=== PATIENT | female | born 2000 | race Caucasian/White ===

== ENCOUNTER 2020-11-06 09:24 | Emergency (ER) | payer OTHER, SELFPAY ==
[2020-11-06 09:36] VITALS: BP 128/83; PULSE 82; RESP 16; TEMP 37.2; O2SAT 100; BMI 23.9
--- NOTE | 2020-11-06 09:42 | ED_ITS ---
HPI - Female Genitourinary General Chief complaint: Vaginal Bleeding Stated complaint: spotting, bad cramping, just learned of Time Seen by Provider: 11/06/20 09:32 Source: patient Mode of arrival: Ambulatory Limitations: no limitations History of Present Illness HPI Narrative: Patient is a 20-year-old female who is currently about 6-8 weeks presenting with vaginal bleeding and spotting for the last 48 hours. She says initially was light and just when she wipes but now seems to be a bit heavier. She has been nauseated but no vomiting. Complaint: vaginal bleeding Onset (ago): day(s) (2) Related Data Allergies Allergy/AdvReac Type Severity Reaction Status Date / Time No Known Drug Allergies Allergy Verified 11/06/20 09:42 Review of Systems Review of Systems Narrative: GENERAL: Denies chills, fatigue, malaise, fever, sweats, travel HEENT: Denies sinus pain, ear pain, sore throat, difficulty swallowing, neck pain RESPIRATORY: Denies dyspnea, cough, wheezing, hemoptysis, sputum. CARDIOVASCULAR: Denies chest pain, palpitations, orthopnea, edema GASTROINTESTINAL: Denies nausea, vomiting, abdominal pain, diarrhea, constipation, melena. 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 MUSCULOSKELETAL: Denies weakness, joint pain, or bony pain SKIN: No rash, no erythema, no pruritus NEUROLOGIC: Denies weakness, dizziness, headache, numbness, change in speech, confusion PSYCHIATRIC: No concerning psychosocial issues. 12 point review of systems is negative except for those stated above and HPI Patient History alcohol intake frequency: 0-2 drinks per day Substance Use Type: does not use Exam Initial Vital Signs Initial Vital Signs: Vital Signs Temperature 98.9 F 11/06/20 09:36 Pulse Rate 82 11/06/20 09:36 Respiratory Rate 16 11/06/20 09:36 Blood Pressure 128/83 11/06/20 09:36 Pulse Oximetry 100 11/06/20 09:36 GENERAL: Well-appearing, well-nourished and in no acute distress. HEENT: Head atraumatic,EOMI, pupils reactive, face symmetric, moist mucous membranes CARDIOVASCULAR: Regular rate and rhythm without murmurs, rubs or gallops. RESPIRATORY: Breath sounds equal bilaterally, no wheezes rales or rhonchi. ABDOMEN: Soft, nontender. Normoactive bowel sounds all 4 quadrants. No guarding or rebound. PELVIC: External genitalia is normal, no vaginal bleeding, no vaginal discharge, no odor, cervical os is closed, minimal right side adnexal tenderness EXTREMITIES: Normal range of motion, no clubbing or edema. Neurovascularly intact NEUROLOGICAL: Alert and oriented x4.N SKIN: Warm, dry, no laceration, no petechiae, no rashes or lesions. Course Orders Ordered: ED Orders 11/06/20 09:35 ABO RH Type Stat Complete Blood Count AUTO DIFF Stat Comprehensive Metabolic Panel Stat HCG Quantitative /Beta subunit Stat 11/06/20 09:42 US pelvic complete Stat Vital Signs Vital signs: Vital Signs - 8 hr 11/06/20 10:57 Pulse Rate 80 Respiratory Rate 18 Blood Pressure 105/63 Pulse Oximetry 99 MDM - Female Genitourinary Lab Data Attestation: I reviewed the patient's lab results. Result diagrams: 11/06/20 09:35 11/06/20 09:35 Labs: Lab Results 11/06/20 11/06/20 11/06/20 Range/Units 09:35 09:35 09:35 WBC 7.0 (4.5-11.0) X10^3/uL RBC 4.22 (4.0-5.2) X10^6/uL Hgb 11.8 L (12.0-16.0) g/dL Hct 35.4 L (36-46) % MCV 83.7 (80-100) fL MCH 28.0 (26-34) PG MCHC 33.5 (30-36) % RDW 14.0 (11.6-14.8) % Plt Count 291 (150-400) X10^3/uL Neut % (Auto) 63.1 (50-75) % Lymph % (Auto) 27.0 (25-40) % [place] % (Auto) 8.5 (3-14) % Eos % (Auto) 0.7 L (2-4) % Baso % (Auto) 0.7 (0-2) % Neut # (Auto) 4400 (6202-4452) /uL Lymph # (Auto) 1900 (0695-2386) /uL [place] # (Auto) 600 (0-900) /uL Eos # (Auto) 0 (0-450) /uL Baso # (Auto) 100 (0-100) /uL Sodium 140 (137-145) mmol/L Potassium 4.1 (3.4-5.1) mmol/L Chloride 107 (98-107) mmol/L Carbon Dioxide 25 (22-32) mmol/L BUN 8 (7-17) mg/dL Creatinine 0.57 (0.52-1.04) mg/dL Estimated GFR > 60.0 (>60) mL/min BUN/Creatinine Ratio 14.0 (6-22) Glucose 77 (70-100) mg/dL Calcium 9.2 (8.4-10.2) mg/dL Total Bilirubin 0.3 (0.2-1.3) mg/dL AST 19 (14-36) IU/L ALT 11 (<35) IU/L Alkaline Phosphatase 58 (38-126) U/L Total Protein 7.2 (6.3-8.2) g/dL Albumin 4.2 (3.5-5.0) g/dL Globulin 3.0 (1.7-4.1) g/dL Albumin/Globulin Ratio 1.4 (1.0-2.8) HCG, Quant 133.5 mIU/mL Blood Type O Positive Point of Care Testing Test Results Positive Urine Dip Bedside Urine Glucose Negative Bedside Urine Bilirubin - Negative Bedside Urine Ketone - Negative Urine Specific [place] 1.015 Bedside Urine Occult Blood - Negative Bedside Urine pH 7.5 Bedside Urine Protein - Negative Bedside Urine Urobilinogen - Negative Bedside Urine Nitrite - Negative Bedside Urine Leukocytes - Negative Esterase Imaging Data US - OB: Radiologist's Impression: PROCEDURE: US PELVIC COMPLETE INDICATIONS: POSITIVE TEST; SPOTTING, CRAMPING TECHNIQUE: Real-time scanning was performed of the pelvic organs, with image documentation. Additional endovaginal scanning was necessary due to incomplete visualization of the adnexal and endometrial structures by transabdominal scanning. COMPARISON: None. FINDINGS: Uterus: Uterus is normal in size at 8.4 x 4.3 x 6.5 cm. The endometrium measures 18.7 mm in combined thickness. There is an appearance of decreased heterogeneous echogenicity within the canal, ill-defined. No classic appearing gestational sac is identif ied. Ovaries: Right ovary measures 3.4 x 1.9 x 2.5 cm. Complex focus of echogenicity is identified measuring 2.1 x 1.7 x 1.9 cm. Left ovary measures 3.2 x 1.6 x 2.6 cm. Other: No pathologic free abdominal or pelvic fluid. IMPRESSION: 1. No definitively identified intrauterine gestational sac. Recommend short interval imaging follow-up with correlation to beta HCG levels. 2. Complex focus of echogenicity within the right ovary suspected to represent corpus luteal cyst. However, recommend imaging follow-up with correlation to beta HCG levels as positive test without definitively identified intrauterine cannot exclude ectopic. Dictated by: Susan Sun M.D. on 11/06/2020 at 10:50 MDM Narrative Medical decision making narrative: Unfortunately patient's hCG is 133 and pelvic ultrasound shows no intrauterine gestational sac. I have informed patient that she is likely miscarrying. HCGs seems to be quite low based on her last menstrual period which was the middle of September. sHe is quite upset by this news which is understandable. Her is noted fluid for the next 6 months her friend with her is quite concerned about her. She has history of depression and anxiety and has not been on medication due to the . At this time patient denies any suicidal or homicidal ideations. She says she just wants to go home and sleep. The friend states that she will stay with her. Discharge Plan Departure Patient Disposition: Home Clinical Impression: Miscarriage Instructions: Dealing With Miscarriage, DI for Miscarriage Activity Restrictions/Additional Instructions: *You have been diagnosed with miscarriage *What to do: I a.m. so sorry to say I believe that you are miscarrying. Her ultrasound does not show anything in the uterus and your hCG is quite low. I do recommend that you have your blood level checked again on November 08. Expect to have more bleeding cramping and blood clots. *Continue to take medications as directed Tylenol or ibuprofen if needed for pain *Follow up with your primary care provider in 2-3 days *Return to ER if you should have increasing bleeding, more than 2 super pads an hour, dizziness, lightheadedness, increasing pain or any new, worsening or concerning symptoms Referrals: David Verma MD [Physician] - Stand Alone Forms: Work Release Note
[2020-11-06 09:43] LABS: Add Manual Diff / Slide Review NO; Basophils Absolute Auto 100 /uL (0-100); Basophils Percent Auto 0.7 % (0-2); Eosinophils Absolute Auto 0 /uL (0-450); Eosinophils Percent Auto 0.7 % (2-4); Hematocrit 35.4 % (36-46); Hemoglobin 11.8 g/dL (12.0-16.0); Lymphocytes Absolute Auto 1900 /uL (1100-4500); Mean Corpuscular HGB Conc 33.5 % (30-36); Mean Corpuscular Volume 83.7 fL (80-100); Monocytes Absolute Auto 600 /uL (0-900); Monocytes Percent Auto 8.5 % (3-14); Neutrophils Absolute Auto 4400 /uL (1500-7000); Neutrophils Percent Auto 63.1 % (50-75); Platelet Count 291 X10^3/uL (150-400); Red Blood Cell Count 4.22 X10^6/uL (4.0-5.2)
[2020-11-06 09:56] LABS: Alanine Aminotransferase 11 IU/L (<35); Albumin 4.2 g/dL (3.5-5.0); Albumin Globulin Ratio 1.4 (1.0-2.8); Alkaline Phosphatase 58 U/L (38-126); Aspartate Aminotransferase 19 IU/L (14-36); Bilirubin Total 0.3 mg/dL (0.2-1.3); Blood Urea Nitrogen 8 mg/dL (7-17); Calcium 9.2 mg/dL (8.4-10.2); Carbon Dioxide 25 mmol/L (22-32); Chloride 107 mmol/L (98-107); Estimated Glomerular Filt Rate > 60.0 mL/min (>60); Glucose 77 mg/dL (70-100); HEMOLYSIS < 15 (0-50); Potassium 4.1 mmol/L (3.4-5.1); Sodium 140 mmol/L (137-145); Total Protein 7.2 g/dL (6.3-8.2)
[2020-11-06 10:13] LABS: HCG Quantitative /Beta subunit 133.5 mIU/mL
[2020-11-06 10:57] VITALS: BP 105/63; PULSE 80; RESP 18; O2SAT 99
== END 2020-11-06 11:50 | disposition home or self-care (01) ==
PROVIDERS: Emergency Provider Emergency Medicine
DX: O03.9 Complete or unspecified spontaneous abortion without complication (principal)
CPT/HCPCS: 36415; 76830; 76856; 80053; 81003; 81025; 84702; 85025; 86900; 86901; 99284

== ENCOUNTER 2020-11-11 12:25 | Emergency (ER) | payer OTHER, SELFPAY ==
[2020-11-11 12:37] VITALS: BP 114/65; PULSE 68; RESP 16; TEMP 37.2; O2SAT 100
--- NOTE | 2020-11-11 12:42 | DI.US.S_ITS ---
PROCEDURE: US OB <= 14 WEEKS FETUS INDICATIONS: PAIN; DATES OUTSIDE/PRIOR DATING DATA: Last menstrual period (LMP): 10/03/2020. LMP-based estimated date of delivery (ROBLES): 07/10/2021. First dating scan (date and location): 11/11/2020 at . Estimated date of delivery (ROBLES) from first dating scan: Not available. TECHNIQUE: Real-time scanning was performed of the fetus and maternal pelvic organs, with image documentation. Endovaginal scanning was also performed to better visualize the fetus and maternal ovaries. COMPARISON: [facility], , PELVIC COMPLETE, 11/06/2020, 9:56. FINDINGS: There is a possible gestational sac measuring 5 weeks 0 day. No pole at this time. There is a small fluid collection in the endometrial cavity superior to the presumed gestational sac. Measurement variability in dating: +/- 4 weeks by LMP, +/- 7 days by mean sac diameter (use before 6 weeks gestation if crown-rump length not able to be measured), +/- 5 days by crown-rump length (up to 8 weeks 6 days gestation), +/- 7 days by crown-rump length (up to 13 weeks 6 days gestation). Maternal organs: There is a complex mass in the right ovary measuring 2.9 x 1.3 by 2.3 cm, most likely a corpus luteal cyst, but ectopic cannot be excluded. Left ovary is normal. IMPRESSION: 1. A possible intrauterine gestational sac with an estimated gestational age of 5 weeks 0 day based on MGSD. No pole is visualized at this time. The finding could be secondary to early intrauterine or a blighted ovum. Recommend clinical correlation and correlation with quantitative serum beta HCG. 2. A small amount of endometrial fluid in the endometrial cavity superior to the presumed gestational sac. 3. A complex mass in the right ovary, most likely a corpus luteal cyst. Ectopic cannot be definitively excluded. Recommend continued clinical follow-up and imaging follow-up as needed. The result was discussed with Dr. Pathak in ER. Dictated by: Nara Patino M.D. on 11/11/2020 at 14:36 Approved by: Nara Patino M.D. on 11/11/2020 at 14:52
[2020-11-11 13:35] LABS: HCG Quantitative /Beta subunit 914.9 mIU/mL
--- NOTE | 2020-11-11 15:01 | ED_ITS ---
HPI - General Chief complaint: OB/Uterine Contractions Stated complaint: possible etopic Time Seen by Provider: 11/11/20 13:38 Source: patient Mode of arrival: Ambulatory History of Present Illness HPI Narrative: Patient is a 20-year-old female who presents for rule out ectopic. I actually saw and evaluated her last week she was thought to be having a miscarriage hCG was quite low at 133 and ultrasound did not show any intrauterine gestation. However she followed up she was supposed to in she had doubled her hCG 48 hours later. She had an [place] [employer] [place] there was concern for ectopic because of dilated fallopian tube. She is only having some mild lower abdominal cramping and vaginal bleeding and spotting has stopped. She denies any nausea or vomiting. She overall is in much better spirits today than when I previously saw her. Related Data Allergies Allergy/AdvReac Type Severity Reaction Status Date / Time No Known Drug Allergies Allergy Verified 11/06/20 09:42 Review of Systems Review of Systems Narrative: GENERAL: Denies chills, fatigue, malaise, fever, sweats, travel HEENT: Denies sinus pain, ear pain, sore throat, difficulty swallowing, neck pain RESPIRATORY: Denies dyspnea, cough, wheezing, hemoptysis, sputum. CARDIOVASCULAR: Denies chest pain, palpitations, orthopnea, edema GASTROINTESTINAL: Denies nausea, vomiting, abdominal pain, diarrhea, constipation, melena. : Denies dysuria, frequency, incontinence, hematuria, urinary retention, flank pain. 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 12 point review of systems is negative except for those stated above and HPI Exam Initial Vital Signs Initial Vital Signs: Vital Signs Temperature 99.0 F 11/11/20 12:37 Pulse Rate 68 11/11/20 12:37 Respiratory Rate 16 11/11/20 12:37 Blood Pressure 114/65 11/11/20 12:37 Pulse Oximetry 100 11/11/20 12:37 GENERAL: Well-appearing, well-nourished and in no acute distress. HEENT: Head atraumatic,EOMI, pupils reactive, face symmetric, moist mucous membranes CARDIOVASCULAR: Regular rate and rhythm without murmurs, rubs or gallops. RESPIRATORY: Breath sounds equal bilaterally, no wheezes rales or rhonchi. ABDOMEN: Soft, mild lower ab pain, no guarding or rebound no upper quadrant pain EXTREMITIES: Normal range of motion, no clubbing or edema. Neurovascularly intact NEUROLOGICAL: Alert and oriented x4.Normal gait and speech. SKIN: Warm, dry, no laceration, no petechiae, no rashes or lesions. Course Orders Ordered: ED Orders 11/11/20 12:42 US OB <= 14 weeks fetus Stat 11/11/20 12:58 Beta HCG, Quant [HCG Quantitative /Beta subunit] Stat Consultations Consultation #1: Betsy Layne Time: 15:05 Vital Signs Vital signs: Vital Signs - 8 hr 11/11/20 12:37 11/11/20 15:21 Temperature 99.0 F Pulse Rate 68 64 Respiratory Rate 16 12 Blood Pressure 114/65 112/62 Pulse Oximetry 100 98 MDM - OB/Uterine Contractions Lab Data Labs: Lab Results 11/11/20 Range/Units 12:58 HCG, Quant 914.9 mIU/mL Imaging Data US - OB: Radiologist's Impression: PROCEDURE: US OB <= 14 WEEKS FETUS INDICATIONS: PAIN; DATES OUTSIDE/PRIOR DATING DATA: Last menstrual period (LMP): 10/03/2020. LMP-based estimated date of delivery (ROBLES): 07/10/2021. First dating scan (date and location): 11/11/2020 at . Estimated date of delivery (ROBLES) from first dating scan: Not available. TECHNIQUE: Real-time scanning was performed of the fetus and maternal pelvic organs, with image documentation. Endovaginal scanning was also performed to better visualize the fetus and maternal ovaries. COMPARISON: [facility], , US PELVIC COMPLETE, 11/06/2020, 9:56. FINDINGS: There is a possible gestational sac measuring 5 weeks 0 day. No pole at this time. There is a small fluid collection in the endometrial cavity superior to the presumed gestational sac. Measurement variability in dating: +/- 4 weeks by LMP, +/- 7 days by mean sac diameter (use before 6 weeks gestation if crown-rump length not able to be measured), +/- 5 days by crown-rump length (up to 8 weeks 6 days gestation), +/- 7 days by crown-rump length (up to 13 weeks 6 days gestation). Maternal organs: There is a complex mass in the right ovary measuring 2.9 x 1.3 by 2.3 cm, most likely a corpus luteal cyst, but ectopic cannot be excluded. Left ovary is normal. IMPRESSION: 1. A possible intrauterine gestational sac with an estimated gestational age of 5 weeks 0 day based on MGSD. No pole is visualized at this time. The finding could be secondary to early intrauterine or a blighted ovum. Recommend cli nical correlation and correlation with quantitative serum beta HCG. 2. A small amount of endometrial fluid in the endometrial cavity superior to the presumed gestational sac. 3. A complex mass in the right ovary, most likely a corpus luteal cyst. Ectopic cannot be definitively excluded. Recommend continued clinical follow- up and imaging follow-up as needed. The result was discussed with Dr. Pathak in ER. Dictated by: Nara Patino M.D. on 11/11/2020 at 14:36 MDM Narrative Medical decision making narrative: Patient's hCG is increasing pole is noted in uterus by ultrasound. She has mild lower abdominal pain and not exquisite pain. It yet it ultrasound does show complex ovarian cyst which was seen previously no significant change today. However Radiology cannot completely exclude ectopic. It is possible she has no heterotopic however unlikely. 3pm-Dr. fellow OBGYN has actually already reviewed the ultrasound and thinks there is no or knee are normal evidence of ectopic. She sees a yolk sac in the uterus. At this time she recommends trending in the HCG. She is happy to follow up with patient in the clinic and have a repeat ultrasound. Discharge Plan Departure Patient Disposition: Home Clinical Impression: Qualifiers: Weeks of gestation: less than 8 weeks Qualified Code(s): Z3A.01 - Less than 8 weeks gestation of Instructions: DI for -- Discomforts and Remedies Activity Restrictions/Additional Instructions: *You have been diagnosed with 5 weeks *What to do: at this time recommended that you have repeat hCG in 48 hours. I have spoken with Dr. wade our Ob fluids happy to see you in the office either Wednesday or Wednesday for follow-up ultrasound. She reviewed her ultrasound today and everything is overall reassuring *Continue to take medications as directed Tylenol 1000 mg every 6 hoursif needed for [id number] pain *Follow up with your primary care provider in 2-3 days *Return to ER if you should have increasing pain, vaginal bleeding, persistant vomiting [or] any new, worsening or concerning symptoms Referrals: [employer] [facility] [Provider Group] Betsy Layne,MD [facility] [Physician] - Stand Alone Forms: Work Release Note
[2020-11-11 15:21] VITALS: BP 112/62; PULSE 64; RESP 12; O2SAT 98
== END 2020-11-11 15:21 | disposition home or self-care (01) ==
PROVIDERS: Emergency Provider Emergency Medicine
DX: O26.891 Other specified pregnancy related conditions, first trimester (principal); R10.30 Lower abdominal pain, unspecified; Z3A.01 Less than 8 weeks gestation of pregnancy
CPT/HCPCS: 36415; 76801; 76817; 84702; 99283; 99284

== ENCOUNTER 2020-11-25 15:16 | Emergency (ER) | payer OTHER, SELFPAY ==
[2020-11-25 15:38] VITALS: BP 93/55; PULSE 63; RESP 20; TEMP 36.6; O2SAT 99
--- NOTE | 2020-11-25 15:49 | DI.US.S_ITS ---
PROCEDURE: US OB <= 14 WEEKS FETUS INDICATIONS: PAIN OUTSIDE/PRIOR DATING DATA: Last menstrual period (LMP): 10/03/2020 . LMP-based estimated date of delivery (ROBLES): 07/10/2021 . First dating scan (date and location): 11/11/2020 . Estimated date of delivery (ROBLES) from first dating scan: 07/13/2021 . TECHNIQUE: Real-time scanning was performed of the fetuses and maternal pelvic organs, with image documentation. Endovaginal scanning: Performed for better visualization of the fetuses and maternal adnexal structures. COMPARISON: None. FINDINGS: General: An single intrauterine is present with a crown-rump length of 1 centimeter (corresponding to 7 week 1 day gestational age). Yolk sac is identified. The heart rate measured at 124 beats per minute. Hypoechoic focus adjacent to the gestational sac measuring 3.2 x 2.9 x 0.5 centimeters is suspicious for small perigestational hemorrhage. Maternal organs: Ovaries normal. Corpus luteum cyst in the right ovary measuring 2.1 centimeters. . IMPRESSION: Single live intrauterine gestation with average ultrasound age of 7 week 1 day. Dictated by: David Burrell M.D. on 11/25/2020 at 16:40 Approved by: David Burrell M.D. on 11/25/2020 at 16:42
[2020-11-25 17:43] LABS: Add Manual Diff / Slide Review NO; Basophils Absolute Auto 0 /uL (0-100); Basophils Percent Auto 0.4 % (0-2); Eosinophils Absolute Auto 100 /uL (0-450); Eosinophils Percent Auto 0.7 % (2-4); Hematocrit 35.2 % (36-46); Hemoglobin 11.7 g/dL (12.0-16.0); Lymphocytes Absolute Auto 2600 /uL (1100-4500); Lymphocytes Percent Auto 28.8 % (25-40); Mean Corpuscular HGB Conc 33.3 % (30-36); Mean Corpuscular Hemoglobin 27.9 PG (26-34); Mean Corpuscular Volume 83.6 fL (80-100); Monocytes Absolute Auto 700 /uL (0-900); Monocytes Percent Auto 8.3 % (3-14); Neutrophils Absolute Auto 5500 /uL (1500-7000); Neutrophils Percent Auto 61.8 % (50-75); Platelet Count 314 X10^3/uL (150-400); Red Blood Cell Count 4.22 X10^6/uL (4.0-5.2); Red Cell Distribution Width 13.9 % (11.6-14.8)
[2020-11-25 18:01] LABS: Alanine Aminotransferase 12 IU/L (<35); Albumin 4.5 g/dL (3.5-5.0); Albumin Globulin Ratio 1.5 (1.0-2.8); Alkaline Phosphatase 55 U/L (38-126); Aspartate Aminotransferase 24 IU/L (14-36); BUN Creatinine Ratio 17.3 (6-22); Bilirubin Total 0.2 mg/dL (0.2-1.3); Blood Urea Nitrogen 9 mg/dL (7-17); Calcium 9.7 mg/dL (8.4-10.2); Carbon Dioxide 26 mmol/L (22-32); Chloride 104 mmol/L (98-107); Estimated Glomerular Filt Rate > 60.0 mL/min (>60); Glucose 95 mg/dL (70-100); HEMOLYSIS < 15 (0-50); Potassium 4.2 mmol/L (3.4-5.1); Sodium 138 mmol/L (137-145); Total Protein 7.5 g/dL (6.3-8.2)
[2020-11-25 18:42] LABS: HCG Quantitative /Beta subunit 35448 mIU/mL
--- NOTE | 2020-11-25 19:30 | ED_ITS ---
HPI - Female Genitourinary General Chief complaint: OB/Uterine Contractions Stated complaint: 7 WKS CYST Time Seen by Provider: 11/25/20 17:44 Source: patient Mode of arrival: Ambulatory History of Present Illness HPI Narrative: 20-year-old female nonsmoker at 7 weeks presents with a chief complaint of some lower abdominal cramping over the past day or so. She is not dizzy nor weak or lightheaded, she denies dysuria, frequency or urgency, she denies diarrhea or constipation. She denies any fever or chills. She denies any bleeding or spotting nor leakage of fluids. She is otherwise well and free of complaint. She denies any obvious provocation, palliation or radiation of her discomfort. Related Data Home Medications Medication Instructions Recorded Confirmed prazosin 5 mg capsule 5 mg PO BEDTIME 11/15/20 11/15/20 Allergies Allergy/AdvReac Type Severity Reaction Status Date / Time No Known Drug Allergies Allergy Verified 11/15/20 12:20 Review of Systems Review of Systems Narrative: GENERAL: Denies chills, fatigue, malaise, fever, sweats. HEENT: Denies sinus pain, ear pain, sore throat, difficulty swallowing, dizziness. RESPIRATORY: Denies dyspnea, cough, wheezing, hemoptysis, sputum. CARDIOVASCULAR: Denies chest pain, palpitations, orthopnea, edema, GASTROINTESTINAL: Denies nausea, vomiting, abdominal pain, diarrhea, constipation, melena. : See HPI MUSCULOSKELETAL: denies weakness, joint pain, or bony pain SKIN: Denies rash, skin lesions, or other NEUROLOGIC: Denies weakness, headache, numbness, change in speech, confusion, seizures, incoordination. PSYCHIATRIC: No concerning psychosocial issues. 12 point review of systems is negative except for those stated above Patient History alcohol intake frequency: 0-2 drinks per day Substance Use Type: does not use Exam Narrative Exam Narrative: GENERAL: [20] year old patient appears stated age. Well- developed patient, in mild distress. HEAD: Atraumatic. Normocephalic. EYES: Pupils equal round and reactive. Extraocular motions intact. No scleral icterus. No injection or drainage. ENT: Nose without bleeding, purulent drainage. Throat without erythema, tonsillar hypertrophy or exudate. Airway patent. NECK: Trachea midline. Non tender CARDIOVASCULAR: Regular rate and rhythm without murmurs, gallops, or rubs. RESPIRATORY: Clear to auscultation. Breath sounds equal bilaterally. No wheezes, rales, or rhonchi. GASTROINTESTINAL: Abdomen soft, non-tender, nondistended. EXTREMITIES: No edema or joint tenderness. BACK: Nontender without deformity or crepitance. No flank tenderness. NEURO: AOx3. SKIN: No rash or erythema of visible areas Initial Vital Signs Initial Vital Signs: Vital Signs Temperature 97.9 F 11/25/20 15:38 Pulse Rate 63 11/25/20 15:38 Respiratory Rate 20 11/25/20 15:38 Blood Pressure 93/55 L 11/25/20 15:38 Pulse Oximetry 99 11/25/20 15:38 Course Orders Ordered: ED Orders 11/25/20 17:30 ABO RH Type Stat Complete Blood Count AUTO DIFF Stat Comprehensive Metabolic Panel Stat HCG Quantitative /Beta subunit Stat Vital Signs Vital signs: Vital Signs - 8 hr 11/25/20 15:38 Temperature 97.9 F Pulse Rate 63 Respiratory Rate 20 Blood Pressure 93/55 L Pulse Oximetry 99 MDM - Female Genitourinary Lab Data Result diagrams: 11/25/20 17:30 11/25/20 17:30 Labs: Lab Results 11/25/20 11/25/20 11/25/20 Range/Units 17:30 17:30 17:30 WBC 9.0 (4.5-11.0) X10^3/uL RBC 4.22 (4.0-5.2) X10^6/uL Hgb 11.7 L (12.0-16.0) g/dL Hct 35.2 L (36-46) % MCV 83.6 (80-100) fL MCH 27.9 (26-34) PG MCHC 33.3 (30-36) % RDW 13.9 (11.6-14.8) % Plt Count 314 (150-400) X10^3/uL Neut % (Auto) 61.8 (50-75) % Lymph % (Auto) 28.8 (25-40) % [place] % (Auto) 8.3 (3-14) % Eos % (Auto) 0.7 L (2-4) % Baso % (Auto) 0.4 (0-2) % Neut # (Auto) 5500 (2737-6759) /uL Lymph # (Auto) 2600 (3241-6173) /uL [place] # (Auto) 700 (0-900) /uL Eos # (Auto) 100 (0-450) /uL Baso # (Auto) 0 (0-100) /uL Sodium 138 (137-145) mmol/L Potassium 4.2 (3.4-5.1) mmol/L Chloride 104 (98-107) mmol/L Carbon Dioxide 26 (22-32) mmol/L BUN 9 (7-17) mg/dL Creatinine 0.52 (0.52-1.04) mg/dL Estimated GFR > 60.0 (>60) mL/min BUN/Creatinine Ratio 17.3 (6-22) Glucose 95 (70-100) mg/dL Calcium 9.7 (8.4-10.2) mg/dL Total Bilirubin 0.2 (0.2-1.3) mg/dL AST 24 (14-36) IU/L ALT 12 (<35) IU/L Alkaline Phosphatase 55 (38-126) U/L Total Protein 7.5 (6.3-8.2) g/dL Albumin 4.5 (3.5-5.0) g/dL Globulin 3.0 (1.7-4.1) g/dL Albumin/Globulin Ratio 1.5 (1.0-2.8) HCG, Quant 89034 mIU/mL Blood Type O Positive Imaging Data US - OB: Radiologist's Impression: Shiloh Sneed A 20 F 2000 [place], [place] [address]Ultrasound ReportSigned Patient: Shiloh Sneed AMR#: [id number]: 2000Acct:[id number]/Sex: 20 / FDate of Service: 11/25/20Loc: EDAccession Number: [id number] Procedure: US OB <= 14 weeks fetus Ordering Provider: Nany Pathak D.O. PROCEDURE: US OB <= 14 WEEKS FETUS INDICATIONS: PAIN OUTSIDE/PRIOR DATING DATA: Last menstrual period (LMP): 10/03/2020 . LMP-based estimated date of delivery (ROBLES): 07/10/2021 . First dating scan (date and location): 11/11/2020 . Estimated date of delivery (ROBLES) from first dating scan: 07/13/2021 . TECHNIQUE: Real-time scanning was performed of the fetuses and maternal pelvic organs, with image documentation. Endovaginal scanning: Performed for better visualization of the fetuses and maternal adnexal structures. COMPARISON: None. FINDINGS: General: An single intrauterine is present with a crown-rump length of 1 centimeter (corresponding to 7 week 1 day gestational age). Yolk sac is identified. The heart rate measured at 124 beats per minute. Hypoechoic focus adjacent to the gestational sac measuring 3.2 x 2.9 x 0.5 centimeters is suspicious for small perigestational hemorrhage. Maternal organs: Ovaries normal. Corpus luteum cyst in the right ovary measuring 2.1 centimeters. . IMPRESSION: Single live intrauterine gestation with average ultrasound age of 7 week 1 day. Dictated by: David Burrell M.D. on 11/25/2020 at 16:40 Approved by: David Burrell M.D. on 11/25/2020 at 16:42 MDM Narrative Medical decision making narrative: Patient with minimal symptoms, very reassur ing history and physical exam. Ultrasound is unremarkable. Return precautions given and questions answered to her apparent satisfaction Discharge Plan Departure Patient Disposition: Home Clinical Impression: Pelvic pain during Instructions: DI for -- Discomforts and Remedies Activity Restrictions/Additional Instructions: *You have been diagnosed with [pelvic pain during with reassuring physical exam and ultrasound] *What to do: *Please continue to take your regular medications as directed. [ ] New medication prescriptions sent to your pharmacy: [ ] [ ] New medication written as a paper prescription [x ] No new medications given *Please follow up with your primary care provider in 2-3 days, call for an appointment. Let them know you were seen in the Emergency Department and that we ask that you be seen in follow up. We will electronically transmit a record of today's note if your PCP is in our system *If you do not have a primary care provider please contact the [facility] Resource line at [phone]. They will ask some questions about your medical history and help get you set up with a doctor in the community. *Return to Emergency Department if you should have any new, worsening or concerning symptoms, such as [fever greater than 101 F, shaking chills, worsening pain, persistent vomiting or other bothersome symptoms] Prescriptions: No Action prazosin 5 mg capsule 5 mg PO BEDTIME RF: 0 Referrals: [place],MD [place] [Physician] - Emeka Pacheco DO [Primary Care Provider] - David Verma MD [Physician] -
== END 2020-11-25 19:58 | disposition home or self-care (01) ==
PROVIDERS: Emergency Medicine; Emergency Provider Emergency Medicine; PCP Family Medicine
DX: O26.91 Pregnancy related conditions, unspecified, first trimester (principal); R10.2 Pelvic and perineal pain; Z3A.01 Less than 8 weeks gestation of pregnancy
CPT/HCPCS: 36415; 76801; 76817; 80053; 84702; 85025; 86900; 86901; 99283; 99284

== ENCOUNTER → 2020-12-12 09:36 | Outpatient (CLI) | payer OTHER, SELFPAY ==
[2020-12-12 13:47] LABS: Urine N gonorrhoeae NOT DETECTED
[2020-12-12 13:53] LABS: Urine Chlamydia NOT DETECTED
== END ==
PROVIDERS: PCP Family Medicine; Visit Provider Obstetrics & Gynecology
DX: Z34.81 Encounter for supervision of other normal pregnancy, first trimester (principal); Z3A.10 10 weeks gestation of pregnancy
CPT/HCPCS: 87491; 87591

== ENCOUNTER → 2020-12-16 15:38 | Outpatient (CLI) | payer OTHER, SELFPAY | PROVIDERS: PCP Family Medicine; Referring Provider Obstetrics & Gynecology; Visit Provider Obstetrics & Gynecology | DX: Z34.91 Encounter for supervision of normal pregnancy, unspecified, first trimester (principal); Z36.0 Encounter for antenatal screening for chromosomal anomalies | CPT/HCPCS: 36415 ==

== ENCOUNTER → 2021-02-07 14:36 | Outpatient (CLI) | payer OTHER, SELFPAY ==
[2021-02-07 15:25] LABS: Add Manual Diff / Slide Review NO; Basophils Absolute Auto 0 /uL (0-100); Basophils Percent Auto 0.3 % (0-2); Eosinophils Absolute Auto 100 /uL (0-450); Eosinophils Percent Auto 0.9 % (2-4); Hematocrit 36.1 % (36-46); Hemoglobin 11.9 g/dL (12.0-16.0); Lymphocytes Absolute Auto 2200 /uL (1100-4500); Lymphocytes Percent Auto 19.1 % (25-40); Mean Corpuscular HGB Conc 32.9 % (30-36); Mean Corpuscular Hemoglobin 28.2 PG (26-34); Mean Corpuscular Volume 85.6 fL (80-100); Monocytes Absolute Auto 1000 /uL (0-900); Monocytes Percent Auto 8.6 % (3-14); Neutrophils Absolute Auto 8100 /uL (1500-7000); Neutrophils Percent Auto 71.1 % (50-75); Platelet Count 289 X10^3/uL (150-400); Red Blood Cell Count 4.22 X10^6/uL (4.0-5.2); Red Cell Distribution Width 15.6 % (11.6-14.8); White Blood Cell Count 11.4 X10^3/uL (4.5-11.0)
[2021-02-07 15:56] LABS: Bilirubin Urine UA NEGATIVE (NEGATIVE); Color Urine UA YELLOW; Glucose Urine UA NEGATIVE (Negative); Ketones Urine UA NEGATIVE (NEGATIVE); Leukocyte Esterase Urine UA TRACE (NEGATIVE); Nitrite Urine UA NEGATIVE (Negative); Occult Blood Urine UA 2+ (Negative); Protein Urine UA NEGATIVE (Negative); Urobilinogen Urine UA 0.2 E.U./dL (0.2)
[2021-02-07 16:07] LABS: pH Urine UA 7.5 (4.5-8.0)
[2021-02-07 16:08] LABS: Appearance Urine UA Slightly Cloudy
[2021-02-07 16:11] LABS: Bacteria Urine Occasional (0-1); RBC Urine 0-1/HPF (0-5/HPF); Squamous Epithelial Cell Urine 1-5 /HPF (0-5/HPF); WBC Urine 1-5/HPF (0-5/HPF)
[2021-02-08 05:53] LABS: RPR Screen Non Reactive (Non Reactive)
[2021-02-08 08:15] LABS: Varicella IgG Antibody 438 index (Immune >165)
[2021-02-10 16:24] LABS: Hepatitis B Surface Antigen NEGATIVE s/c (NEGATIVE); Rubella Antibody IgG 26.6 IU/mL (>15)
[2021-02-10 16:42] LABS: HIV 1 & 2 Ab/Ag 4th Gen Combo NEGATIVE (NEGATIVE); Hep C Virus Ab w/Reflex Quant NEGATIVE s/c (NEGATIVE)
== END ==
PROVIDERS: PCP Family Medicine; Referring Provider Obstetrics & Gynecology; Visit Provider Obstetrics & Gynecology
DX: Z34.81 Encounter for supervision of other normal pregnancy, first trimester (principal)
CPT/HCPCS: 36415; 80055; 81003; 81015; 86787; 86803; 86850; 86900; 86901; 87086; 87389

== ENCOUNTER → 2021-02-21 12:43 | Outpatient (CLI) | payer OTHER, SELFPAY ==
--- NOTE | 2021-02-21 12:45 | DI.US.S_ITS ---
PROCEDURE: US OB >= 14 WEEKS FETUS INDICATIONS: ANATOMY OUTSIDE/PRIOR DATING DATA: Last menstrual period (LMP): 10/03/2020 . LMP-based estimated date of delivery (ROBLES): 07/10/2021 . First dating scan (date and location): 11/11/2020 . Estimated date of delivery (ROBLES) from first dating scan: 07/13/2021 . TECHNIQUE: Real-time scanning was performed of the fetus, with image documentation and biometric measurements. Endovaginal scanning: Non COMPARISON: None. FINDINGS: General: A single living intrauterine gestation is present. Presentation: Vertex. Placenta: Placental position is posterior , without previa. Amniotic fluid index: 13.9 cm, normal range is 5-24 cm. heart rate: 153 beats per minute. Maternal cervical canal: 3.6 cm long. Normal lower limit is 2.5 cm. biometrics: Biparietal diameter: 4.5 cm, 19 week 4 day Head circumference: 17.6 cm, 19 week 6 day Abdominal circumference: 15.3 cm, 20 week 4 day Femur length: 3.2 cm, 20 week 0 day Estimated gestational age from initial scan: 19 week 5 day Composite gestational age from present scan: 20 week 0 day Estimated weight and percentile: 340 g, 75th percentile Measurement variability for biometric dating: +/- 7 days from 14 weeks to 15 weeks 6 days gestation, +/- 10 days from 16 weeks to 21 weeks 6 days gestation, +/- 2 weeks from 22 weeks to 27 weeks 6 days gestation, +/- 3 weeks for 28 weeks gestation or later. weight reference: 4500 g or EFW >90/95% is considered macrosomia or large for gestational age. EFW <10% is small for gestational age. EFW 5% or less is considered intra-uterine growth restriction. Anatomic survey: Neuro: Ventricles are non-dilated at less than 10 mm. Cisterna magna is normal at 3-11 mm. Cerebellum is normal in size and morphology. Nuchal skin fold: Normal at less than 6 mm between 14-21 weeks gestational age. Face: Nose and lips, facial profile are normal. Spine: No evidence for spina bifida. Heart: 4-chambered heart is present, with normal ventricular outflow tracts. Diaphragm: Diaphragm is intact. Stomach: Left-sided stomach is present. Kidneys: No hydronephrosis. Normal is less than 5 mm in 2nd trimester, less than 7 mm in 3rd trimester. Cord: 3-vessel cord has orthotopic insertion. Bladder: Normal in size. Extremities: All 4 extremities identified. IMPRESSION: Single live intrauterine consistent with a 20 week 0 day gestation by current ultrasound Approved by: Moose Posadas M.D. on 02/21/2021 at 16:13
[2021-02-21 13:43] LABS: Appearance Urine UA SL CLOUDY; Bilirubin Urine UA NEGATIVE (NEGATIVE); Color Urine UA YELLOW; Glucose Urine UA NEGATIVE (Negative); Ketones Urine UA NEGATIVE (NEGATIVE); Leukocyte Esterase Urine UA 3+ (NEGATIVE); Nitrite Urine UA NEGATIVE (Negative); Occult Blood Urine UA NEGATIVE (Negative); Protein Urine UA NEGATIVE (Negative); Specific Gravity Urine UA 1.015 (1.000-1.035); Urobilinogen Urine UA 0.2 E.U./dL (0.2)
[2021-02-21 14:00] LABS: RBC Urine None Seen (0-5/HPF); Squamous Epithelial Cell Urine 5-10 /HPF (0-5/HPF); WBC Urine 5-10/HPF (0-5/HPF)
[2021-02-21 14:01] LABS: Amorphous Sediment Urine 2+; Bacteria Urine Many (>30); Culture Indicated Urine Cult Not Indicated
== END ==
PROVIDERS: PCP Family Medicine; Referring Provider Obstetrics & Gynecology; Visit Provider Obstetrics & Gynecology
DX: O23.42 Unspecified infection of urinary tract in pregnancy, second trimester; N39.0 Urinary tract infection, site not specified; Z36.89 Encounter for other specified antenatal screening; Z3A.20 20 weeks gestation of pregnancy
CPT/HCPCS: 76811; 81003; 81015

== ENCOUNTER → 2021-04-04 12:20 | Outpatient (CLI) | payer OTHER, SELFPAY ==
[2021-04-04 14:07] LABS: Hemoglobin 11.8 g/dL (12.0-16.0)
[2021-04-04 14:23] LABS: GTT (PREG) 1 Hour PP 50gm Dose 130 mg/dL (76-139)
== END ==
PROVIDERS: PCP Family Medicine; Referring Provider Obstetrics & Gynecology; Visit Provider Obstetrics & Gynecology
DX: Z34.82 Encounter for supervision of other normal pregnancy, second trimester (principal); Z3A.25 25 weeks gestation of pregnancy
CPT/HCPCS: 36415; 82950; 85014; 85018

== ENCOUNTER → 2021-06-04 08:55 | Outpatient (CLI) | payer OTHER, SELFPAY ==
[2021-06-04 10:25] LABS: COVID19 -Nasal RAPID Negative (Negative)
== END ==
PROVIDERS: PCP Family Medicine; Visit Provider Obstetrics & Gynecology
DX: Z20.822 Contact with and (suspected) exposure to COVID-19 (principal)
CPT/HCPCS: 87635

== ENCOUNTER → 2021-06-04 09:01 | Outpatient (CLI) | payer OTHER, SELFPAY ==
[2021-06-04 09:22] LABS: Add Manual Diff / Slide Review NO; Basophils Absolute Auto 0 /uL (0-100); Basophils Percent Auto 0.2 % (0-2); Eosinophils Absolute Auto 0 /uL (0-450); Eosinophils Percent Auto 0.2 % (2-4); Hematocrit 37.8 % (36-46); Hemoglobin 12.6 g/dL (12.0-16.0); Lymphocytes Absolute Auto 900 /uL (1100-4500); Lymphocytes Percent Auto 6.8 % (25-40); Mean Corpuscular HGB Conc 33.2 % (30-36); Mean Corpuscular Hemoglobin 28.4 PG (26-34); Mean Corpuscular Volume 85.6 fL (80-100); Monocytes Absolute Auto 1100 /uL (0-900); Monocytes Percent Auto 8.8 % (3-14); Neutrophils Absolute Auto 10700 /uL (1500-7000); Platelet Count 217 X10^3/uL (150-400); Red Blood Cell Count 4.42 X10^6/uL (4.0-5.2); Red Cell Distribution Width 12.7 % (11.6-14.8); White Blood Cell Count 12.7 X10^3/uL (4.5-11.0)
[2021-06-04 09:34] LABS: Alanine Aminotransferase 11 IU/L (<35); Albumin 3.8 g/dL (3.5-5.0); Albumin Globulin Ratio 1.2 (1.0-2.8); Alkaline Phosphatase 103 U/L (38-126); Aspartate Aminotransferase 22 IU/L (14-36); BUN Creatinine Ratio 12.8 (6-22); Bilirubin Total 0.5 mg/dL (0.2-1.3); Blood Urea Nitrogen 6 mg/dL (7-17); Carbon Dioxide 24 mmol/L (22-32); Chloride 105 mmol/L (98-107); Estimated Glomerular Filt Rate > 60.0 mL/min (>60); Globulin 3.2 g/dL (1.7-4.1); Glucose 82 mg/dL (70-100); HEMOLYSIS < 15 (0-50); Potassium 3.8 mmol/L (3.4-5.1); Sodium 135 mmol/L (137-145)
[2021-06-04 11:33] LABS: Amylase 79 U/L (30-110); Lipase 55 U/L (23-300)
== END ==
PROVIDERS: PCP Family Medicine; Referring Provider Obstetrics & Gynecology; Visit Provider Obstetrics & Gynecology
DX: Z34.83 Encounter for supervision of other normal pregnancy, third trimester (principal); R11.2 Nausea with vomiting, unspecified
CPT/HCPCS: 36415; 80053; 82150; 83690; 85025

== ENCOUNTER 2021-06-04 09:12 | Outpatient (CLI) | payer OTHER, SELFPAY ==
[2021-06-04] MEDS: LACTATED RINGERS 1,000 ML 1000 ML IV (10:17)
[2021-06-04 10:43] LABS: Appearance Urine UA CLEAR; Bilirubin Urine UA NEGATIVE (NEGATIVE); Color Urine UA YELLOW; Glucose Urine UA NEGATIVE (Negative); Ketones Urine UA NEGATIVE (NEGATIVE); Leukocyte Esterase Urine UA TRACE (NEGATIVE); Nitrite Urine UA NEGATIVE (Negative); Occult Blood Urine UA NEGATIVE (Negative); Protein Urine UA NEGATIVE (Negative); Urobilinogen Urine UA 0.2 E.U./dL (0.2)
[2021-06-04 10:51] LABS: Bacteria Urine Many (>30); Culture Indicated Urine Cult Not Indicated; RBC Urine 0-1/HPF (0-5/HPF); Squamous Epithelial Cell Urine 10-30 /HPF (0-5/HPF); WBC Urine 1-5/HPF (0-5/HPF)
[2021-06-04] MEDS: METOCLOPRAMIDE 10 MG/2 ML INJ IV (11:14)
--- NOTE | 2021-06-04 15:39 | PM.OBTRLD ---
Visit Information Visit Information Date of evaluation: 06/04/21 Primary OB Provider: Maximilian Lopez Comments/Additional reasons for admission: The patient has been experiencing leakage of fluid PV times the last 5 days which she has attributed to leakage of urine and has also started having nausea and vomiting. She is sent to the center for monitoring and evaluation [facility] Medical History Acne Anorexia Anxiety Bulimia (~05/2019) Finger fracture History of being hospitalized Joint pain (~05/2019) SAB (spontaneous ) (~12/2019) Torn meniscus (~08/2019) Surgical History [place] teeth extracted (~10/2016) Family History Father Hyperthyroidism History of prediabetes Altered cardiac tissue perfusion Mother BRCA gene positive Benign tumor of breast Heavy smoker Depression Anxiety Grandfather History of heart artery stent Rheumatoid arthritis Grandmother Cancer Breast cancer BRCA gene positive Hypertension Grandfather Diabetes mellitus Grandmother Rheumatoid arthritis Benign tumor of breast Twins, both liveborn Brother Aspergers' syndrome Epilepsy Family/Other Altered cardiac tissue perfusion Joint pain Family/Other Twins, both liveborn Social History marital status: household members: spouse and other (shares housing right now) lives independently: Yes pets and animals: Yes (X 1 dog; X 1 cat (aware) and a Bird and a Bunny ) education level: college ([employer]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[facility]) occupational status: employed ([employer]) current occupational exposures/hazards: Yes 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 Smoking Status: Former smoker (1/2 pack per Day - then vaped) Tobacco: How many years used: 1 Smokeless tobacco user: dissolvable tobacco quit status: quit date established (September 2020) second hand exposure: No alcohol intake: former (pre- : does not drink ever now (stopped at age 18)) substance use type: does not use Exam Const General: cooperative and in distress (Patient does not feel well) Nutritional Appearance: average body habitus Orientation: alert and oriented x3 HENMT Head: normal to inspection, normocephalic and atraumatic Ears: hearing grossly normal bilaterally Eyes Conjunctivae: conjunctivae normal Sclera: sclerae normal EOM: EOM intact bilaterally Neck Neck: normal visual inspection Resp Effort & Inspection: normal respiratory effort and able to speak in complete sentences GI Inspection: normal to inspection Palpation: soft and no hepatosplenomegaly Uterus Location (Fundal Height): 35 Presentation: vertex Estimated Weight (lbs): 5 Other: AmniSure is negative Objective Labs Labs: Laboratory Results - last 24 hr 06/04/21 10:30 Urine Color Yellow Urine Appearance Clear Urine pH 8.0 Ur Specific [place] 1.010 Urine Protein Negative Urine Glucose (UA) Negative Urine Ketones Negative Urine Occult Blood Negative Urine Nitrate Negative Urine Bilirubin Negative Urine Urobilinogen 0.2 Ur Leukocyte Esterase Trace H Urine RBC 0-1/hpf Urine WBC 1-5/hpf Ur Squamous Epith Cells 10-30 /hpf H Urine Bacteria Many (>30) H Ur Culture Indicated? Cult not indicated Evaluation Evaluation Baseline heart rate: 145 Variability: Average (6-10) monitor accelerations: Present Monitor Decelerations: Absent Category of Tracing: Reactive Status: Category l Non-invasive Membranes Rupture Test: negative Diagnosis, Plan/Disposition Final Diagnosis (1) Non- nausea and vomiting: Status: Acute (2) : Status: Acute Problem details: Laboratory evaluation including CBC, CMP, amylase, lipase, UA, AmniSure are all essentially normal or negative. No clear explanation for the patient's nausea and vomiting is evident. Will switch anti emetic to Reglan place the patient at bed rest for the duration of her . She will follow-up in 1 week for her next ANIL visit but has been encouraged to contact the office with any exacerbation of her symptoms or any concerns about the baby's activity. Plan/Disposition Plan: See above OB Disposition: home
== END 2021-06-04 11:20 | disposition home or self-care (01) ==
LOC: LABOR 10:36 → OB 06-10 07:30
PROVIDERS: PCP Family Medicine; Referring Provider Obstetrics & Gynecology; Visit Provider Obstetrics & Gynecology
DX: Z03.71 Encounter for suspected problem with amniotic cavity and membrane ruled out (principal); O26.893 Other specified pregnancy related conditions, third trimester; R11.2 Nausea with vomiting, unspecified; Z3A.34 34 weeks gestation of pregnancy; Z34.83 Encounter for supervision of other normal pregnancy, third trimester; Z20.822 Contact with and (suspected) exposure to COVID-19
CPT/HCPCS: 36415; 59025; 59050; 80053; 81001; 82150; 83690; 85025; 87635; 96360; G0378; G0379; J2765

== ENCOUNTER → 2021-06-11 08:54 | Outpatient (CLI) | payer OTHER, SELFPAY ==
[2021-06-12 10:39] LABS: Strep Grp B PCR POS for Grp B Strep
== END ==
PROVIDERS: PCP Family Medicine; Visit Provider Obstetrics & Gynecology
DX: Z34.03 Encounter for supervision of normal first pregnancy, third trimester (principal); Z3A.36 36 weeks gestation of pregnancy
CPT/HCPCS: 87653

== ENCOUNTER 2021-07-02 16:58 | Inpatient (IN) | payer OTHER, SELFPAY ==
[2021-07-02 17:30] VITALS: BP 109/70
[2021-07-02 18:24] LABS: Add Manual Diff / Slide Review NO; Basophils Absolute Auto 0 /uL (0-100); Basophils Percent Auto 0.3 % (0-2); Eosinophils Absolute Auto 0 /uL (0-450); Eosinophils Percent Auto 0.4 % (2-4); Hematocrit 36.2 % (36-46); Hemoglobin 12.4 g/dL (12.0-16.0); Lymphocytes Absolute Auto 2300 /uL (1100-4500); Mean Corpuscular HGB Conc 34.2 % (30-36); Mean Corpuscular Hemoglobin 29.1 PG (26-34); Monocytes Absolute Auto 600 /uL (0-900); Monocytes Percent Auto 5.6 % (3-14); Neutrophils Absolute Auto 8100 /uL (1500-7000); Neutrophils Percent Auto 72.7 % (50-75); Platelet Count 246 X10^3/uL (150-400); Red Blood Cell Count 4.26 X10^6/uL (4.0-5.2); Red Cell Distribution Width 13.1 % (11.6-14.8); White Blood Cell Count 11.1 X10^3/uL (4.5-11.0)
[2021-07-02] MEDS: miSOPROStoL 25 MCG TABLET 50 MCG PO (18:33)
[2021-07-02 18:44] LABS: COVID19 -Nasal RAPID Negative (Negative)
--- NOTE | 2021-07-02 18:52 | P.HPOB_ITS ---
OB HPI Date/Time Date of admission: 07/02/21 Date Patient Seen: 07/02/21 Time Patient Seen: 18:52 History of Present Condition Chief complaint: : 1 Para: 0 Estimated Gestational Age (weeks): 38+6 Narrative: Shiloh Sneed is a 20 year old , ROBLES 07/10/2021 who was admitted now at 38 weeks 6 days for elective induction at the patient request due to extreme pelvic discomfort and patient fatigue in the late 3rd trimester. course is largely been uneventful but she has gained a total of 66 lb and she is GBS positive. Her most recent OB ultrasound performed at 20 weeks for anatomy showed the infant to be at the 75th percentile insofar as estimated weight. Cervical donation in the office on 07/02/2021 showed her cervix to be 75%/TFT/-3/soft/intermediate (BS=5). Induction consent executed. Indications Indication for induction OB: maternal discomfort History of Present care: good care Dating criteria: LMP confirmed by 1st trimester US Obstetrical complications: none Medical complications: other (GBS positive) Preadmission Labs Blood type: O (+) positive -: Antibody screen: negative, GBS status: positive, HBsAG: negative, HIV: negative and RPR/VDLR: negative -: Chlamydia screen: not detected and Gonorrhea screen: not detected -: Rubella: immune and Varicella: immune HCT: 36.2 HCAB: negative PAP: Normal (08/2020) Cell-free DNA: Negative, female 1 hr GTT: 130 Prior (ies) History: 1st trimester SAB Evaluation Evaluation Baseline heart rate: 130 Variability: Moderate (11-25) monitor accelerations: Present Monitor Decelerations: Variable (Isolated variable with gradual return to normal baseline) Category of Tracing: Reactive Status: Category l Dilation (cm): 0 Effacement (%): 75 Dilation: Closed Effacement: 60-70% station: -3 Position of cervix: mid Consistency: soft Mireles score: 5 PFSH Medical History Acne Anorexia Anxiety Bulimia (~05/2019) Finger fracture History of being hospitalized Joint pain (~05/2019) SAB (spontaneous ) (~12/2019) Torn meniscus (~08/2019) Surgical History [place] teeth extracted (~10/2016) Family History Father Hyperthyroidism History of prediabetes Altered cardiac tissue perfusion Mother BRCA gene positive Benign tumor of breast Heavy smoker Depression Anxiety Grandfather History of heart artery stent Rheumatoid arthritis Grandmother Cancer Breast cancer BRCA gene positive Hypertension Grandfather Diabetes mellitus Grandmother Rheumatoid arthritis Benign tumor of breast Twins, both liveborn Brother Aspergers' syndrome Epilepsy Family/Other Altered cardiac tissue perfusion Joint pain Family/Other Twins, both liveborn Social History marital status: household members: spouse and other (shares housing right now) lives independently: Yes pets and animals: Yes (X 1 dog; X 1 cat (aware) and a Bird and a Bunny ) education level: college ([employer]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[facility] [employer]) occupational status: employed ([employer]) current occupational exposures/hazards: Yes 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 Smoking Status: Former smoker Tobacco: How many years used: 1 Smokeless tobacco user: dissolvable tobacco quit status: quit date established (September 2020) second hand exposure: No alcohol intake: former (pre- : does not drink ever now (stopped at age 18)) substance use type: does not use Meds Home Medications and Allergies Home Medications Medication Instructions Recorded Confirmed Type prenat.vits,aston,[id number]-[id number] 1 tab PO DAILY 12/03/20 07/02/21 History omeprazole magnesium 20 mg 20 mg PO BID #60 tab 05/27/21 07/02/21 Rx tablet,delayed release (Prilosec OTC) metoclopramide HCl 10 mg tablet 10 mg PO Q6H PRN #60 tab 06/04/21 07/02/21 Rx (Reglan) Allergies Allergy/AdvReac Type Severity Reaction Status Date / Time No Known Drug Allergies Allergy Verified 01/10/21 14:00 OB Exam HENAZ Head: normal to inspection, normocephalic and atraumatic Mouth: oral mucosae normal Eyes General: appearance normal, both eyes and all related structures Resp Effort & Inspection: normal respiratory effort and able to speak in complete sentences Auscultation: clear to auscultation bilaterally Cardio Rate: regular rate Rhythm: regular rhythm Heart Sounds: S1 normal, S2 normal and no murmurs Extremities Lower extremity: Yes normal to inspection; No edema External Female Exam: Yes normal external appearance Uterus Location (Fundal Height): 36 Presentation: vertex Estimated Weight (lbs): 8 Objective Labs Result Diagrams: 07/02/21 17:45 Labs: Laboratory Results - last 24 hr 07/02/21 07/02/21 17:45 18:16 WBC 11.1 H RBC 4.26 Hgb 12.4 Hct 36.2 MCV 85.0 MCH 29.1 MCHC 34.2 RDW 13.1 Plt Count 246 Neut % (Auto) 72.7 Lymph % (Auto) 21.0 L [place] % (Auto) 5.6 Eos % (Auto) 0.4 L Baso % (Auto) 0.3 Neut # (Auto) 8100 H Lymph # (Auto) 2300 [place] # (Auto) 600 Eos # (Auto) 0 Baso # (Auto) 0 SARS-CoV-2 (PCR) Negative Assessment and Plan Assessment and Plan Assessment and Plan narrative: ASSESSMENT 1. Intrauterine gestation, Manning, 38+ 6 weeks gestational age, vertex 2. Excessive weight gain of 3. GBS positive, antepartum 4. Maternal discomfort, moderate-severe PLAN 1. Admit for ripening/induction 2. GBS prophylaxis 3. See admission orders Time Spent with Patient Total time spent with greater than 50% in coordination of care (as documented) at patient's floor/unit and/or counseling patient:: 15-24 minutes
[2021-07-03] MEDS: miSOPROStoL 25 MCG TABLET 50 MCG PO (00:55)
[2021-07-03] MEDS: ZOLPIDEM 5 MG TABLET PO (00:55)
[2021-07-03] MEDS: PENICILLIN G POTASSIUM 3,000,000 UNIT/50 ML FROZ.PIGGY 100 UNIT IV (10:50)
[2021-07-03] MEDS: LACTATED RINGERS 1,000 ML 100 ML IV (11:45)
--- NOTE | 2021-07-03 13:07 | PM.OBPNLAB ---
Date/Time Date Patient Seen: 07/03/21 Time Patient Seen: 13:10 Pain Control Pain control: tolerating well Pelvic Exam Dilation (cm): 1 Effacement (%): 80 station: -4 (Unengaged, RLQ) Amniotic membrane status: Ruptured (SROM clear 10:00) Contractions Contractions on admission: none Monitor mode: External Pitocin rate (mU/min): 8 Contraction frequency (min): 4 Contraction duration (min): 1 Contraction pattern: Irregular Contraction phase: Resting Contraction intensity: Moderate Status status: Category ll Heart Rate Baseline: 150 Monitor Accelerations: Present Monitor Decelerations: Variable (Recurrent) Monitor Variability: Moderate Assessment and Plan Assessment: induction ongoing Comments: The infant was vertex on admission and when examined earlier this AM prior to starting pitocin but is now unengaged with the vertex deep in the RLQ with the seeming to be in an oblique lie. EFW is 8.5 - 9 lbs. by [place] and transition to oblique lie my reflect inlet obstruction/CPD. The presence of an unengaged vertex with SROM is also a concern for increased risk of cord prolapse, especially with the patient experiencing deep variables at this point in her induction. Will D/C Pitocin, evaluate EFW with US, and discuss possible for malposition and recurrent variables remote from delivery.
--- NOTE | 2021-07-03 13:08 | DI.US.S_ITS ---
PROCEDURE: US OB LIMITED INDICATIONS: EFW; POSITION OUTSIDE/PRIOR DATING DATA: Last menstrual period (LMP): October 03, 2020. LMP-based estimated date of delivery (ROBLES): July 10, 2021. First dating scan (location): [facility]. Estimated date of delivery (ROBLES) from first dating scan: July 13, 2020. TECHNIQUE: Real-time scanning was performed of the fetus, with image documentation and biometric measurements. COMPARISON: [facility], , OB >= 14 WEEKS FETUS, 02/21/2021, 13:24. FINDINGS: Patient in labor. General: A single living intrauterine gestation is present. Presentation: Vertex. Placenta: Placental position is left fundal, without previa. heart rate: 147 beats per minute. biometrics: Biparietal diameter: 9.3 cm Head circumference: 32.4 cm Abdominal circumference: 32 cm Femur length: 7.7 cm Clinically estimated gestational age: 38 weeks, 4 days Composite gestational age from present scan: 37 weeks, 2 days Estimated weight and percentile: 3093; 27th percentile Other: Not applicable. IMPRESSION: Live single intrauterine gestation. We strive to produce accurate, complete, and clear reports of imaging services. To assist us in improving patient care, this report was composed using standard report templates and voice recognition software. Therefore, it may contain abnormal punctuation, insertions and/or omissions. Occasional wrong-word or sound-alike substitutions may occur. Though we review the report and make efforts to correct it, we do recommend that the report be read carefully in proper context to recognize any text inaccuracies. Dictated by: Steven García M.D. on 07/03/2021 at 14:28 Approved by: Steven García M.D. on 07/03/2021 at 14:36
--- NOTE | 2021-07-03 13:53 | PM.OBPNLAB ---
Date/Time Date Patient Seen: 07/03/21 Time Patient Seen: 13:53 Pelvic Exam Effacement (%): 80 station: -4 (Unengaged, RLQ) Amniotic membrane status: Ruptured (SROM clear 10:00) Contractions Monitor mode: External Contraction frequency (min): 4 Contraction pattern: Irregular Contraction phase: Resting Contraction intensity: Moderate Status status: Category ll Assessment and Plan Assessment: other Plan: Comments: Patient had spontaneous deep deceleration to 60 BPM which slowly recovered with placement in knee chest position. With malpresentation and intolerance of labor remote from delivery, will proceed to primary section. Patient counseled regarding alternatives, risks, benefits, and potential complications associated with primary section. With full understanding of the above, a written consent was executed, signed, and witnessed this date.
[2021-07-03] MEDS: CEFAZOLIN 2 GM/20 ML SYRINGE IV (14:20)
--- NOTE | 2021-07-03 14:36 | SUR.OPER ---
Supine on Padded OR bed, head on pillow, safety belt at thigh, arms secured on padded arm boards at <90 degrees abduction. Bump under right buttock. Legs uncrossed with pillow under knees, gel pad to heels, tape over blanket to lower legs.
--- NOTE | 2021-07-03 14:47 | SUR.OPER ---
Viable female delivered via section. Cord blood vials x2 and placenta sent with L&D RN.
[2021-07-03 15:32] VITALS: BP 110/62; PULSE 65; RESP 14; TEMP 36.2; O2SAT 100
[2021-07-03 15:35] VITALS: BP 127/73; PULSE 65; RESP 15; O2SAT 99
[2021-07-03 15:40] VITALS: BP 131/86; PULSE 66; RESP 15; O2SAT 99
[2021-07-03 15:43] VITALS: BP 131/86; PULSE 69; RESP 15; O2SAT 100
--- NOTE | 2021-07-03 15:43 | PM.OBCS.1 ---
Operative Date/Time/Diagnoses Date of procedure: 07/03/21 Time of procedure: 14:20 Pre-op diagnosis: Intrauterine , snow, 39+0 weeks EGA Oblique presentation Intolerance of labor remote from delivery Post-op diagnosis: other (Same as above; Occult umbilical cord prolapse) Procedure & Clinicians Procedure: Primary Section, low transverse cervical incision Same procedure as scheduled: Yes Indications: Shiloh is a 20-year-old at 39 weeks gestational age undergoing elective induction at patient request due to moderate to severe patient discomfort in the late 3rd trimester. During the initial phase of her cervical ripening the patient was seen to have isolated variable deceleration switch worsened markedly after SROM on the morning of 07/03/2021. At the same time it was noted that the vertex was no longer applied to the cervix but instead the vertex was in the right lower quadrant and the in an oblique lie with no palpable presenting part in the pelvis and the cervix only dilated to 1 cm. The presence of the vertex in the right lower quadrant was confirmed with ultrasound and during the period of evaluation patient spontaneously had another deep, sustained deceleration down to the 60's with slow return to baseline. With the infant in an abnormal lie resulting in no presenting part applied to the cervix and deep variables remote from delivery, concern for the possibility of an occult cord prolapse resulted in the decision for primary section via low transverse cervical incision. The patient was counseled regarding alternatives, risks, benefits, and potential complications of primary delivery and we're proceeding to delivery at this time. Surgeon: Maximilian Lopez Talent Coordinator: Aurora Yoder Reason for Talent Coordinator: Physician medical office assistant instructor required for safety, timely performance of the procedure, retraction, and other assistance necessary to provide optimal care for this patient. Anesthesia Type: Spinal Operative Notes Findings: Viable female infant, Apgars 8/9 , weight 2929 gms. (6 lb. 7.3 oz.),oblique lie (head to the right), occult umbilical cord prolapse, normal gravid anatomy, no evidence of pelvic contracture Closure Type: primary Specimen(s): cord blood Intraoperative meds administered: Pitocin Applied: Catheter Estimated Blood Loss (mL): 500 Procedure in detail: With the patient under satisfactory spinal block anesthesia in the dorsal supine position, the abdomen was prepped and draped in the usual fashion for section following placement of a Velásquez catheter. A pre-surgical safety time-out was then taken in accordance with [facility] OR protocols. A 14 cm transverse Pfannenstiel incision was then made and carried down to the deep fascia. The deep fascia was incised transversely, the rectus abdomini bluntly, and the peritoneal cavity entered sharply. A bladder flap was then created with a transverse incision of the peritoneum overlying the lower uterine segment and the hysterotomy was performed transversely. The amniotic cavity was entered without difficulty and minimal fluid was encountered. Immediately upon entry into the uterine cavity and ahead of the leading edge of the vertex was a loop of umbilical cord. The cord was reduced and the delivered from the vertex presentation with the assistance of vacuum extraction. Delayed cord clamping was performed because the infant was vigorous and after 60 seconds the umbilical cord was clamped and cut. The infant was passed off the operative field to the respiratory and nursing personnel for continued observation. The placenta was then removed from the uterine cavity with a combination of gentle traction on the cord as well as massage of the uterus. Once remove all membranes were removed with ring forceps and a long ring forcep was down through the endocervical canal into the upper vagina. The uterine cavity was then explored 1st with a dry lap followed by a sloppy wet lap and found to be completely empty. The uterus was then exteriorized and closure of the hysterotomy was performed in 2 layers with the 1st being #1 Chromic catgut suture in a running interlocking stitch initiated at both angles and tying separately near the midline followed by a 2nd layer of #1 Chromic in a running imbricating interlocking stitch. Hemostasis was excellent and no further hemostatic sutures were required. Pelvis was irrigated and found to be without bleeding or clots/debris. The uterus was replaced in the abdominal cavity and the pelvis inspected once again. There were no areas of bleeding noted and the bladder flap was then closed with 2-0 Vicryl in a running stitch. The anterior peritoneum was then closed in a similar manner and the fascia was closed with #1 Vicryl initiated at both angles and tying separately near the midportion of the and incision. Subcutaneous tissues were brought together with 2-0 Vicryl in a running stitch and the skin edges were brought together with 4-0 Monocryl in a subcuticular closure. Appropriate dressings were then applied and the patient was transferred to the PACU for a period of observation and recovery having tolerated the procedure well. Complications: none [place] Baby 1: Gender: Female Presentation: other (Oblique lie, delivered vertex) Position: Left Occiput Anterior Placental Delivery Description: Expressed Cord Vessel Description: 3 Vessels score (1 min): 8 score (5 min): 9 weight: 6 lb 7.317 oz Post-operative Condition: stable Disposition: PACU Aftercare: routine postop
[2021-07-03] MEDS: IBUPROFEN 600 MG TABLET PO (20:59)
[2021-07-03] MEDS: ACETAMINOPHEN 325 MG TABLET 650 MG PO (20:59)
[2021-07-04] MEDS: IBUPROFEN 600 MG TABLET PO ×4 (02:50→21:16)
[2021-07-04] MEDS: ACETAMINOPHEN 325 MG TABLET 650 MG PO ×4 (02:50→21:17)
[2021-07-04 07:53] LABS: Hematocrit 32.1 % (36-46); Hemoglobin 10.9 g/dL (12.0-16.0)
[2021-07-04] MEDS: DOCUSATE 100 MG CAPSULE 200 MG PO (08:55)
[2021-07-04] MEDS: PRENATAL VIT,CALC/IRON/FOLIC 1 TABLET 1 TAB PO (08:56)
--- NOTE | 2021-07-04 13:09 | PM.OBPN.1 ---
Subjective - OB Subjective Patient comments: no complaints, pain well controlled, tolerating diet and flatus present baby status: doing well feeding status: exclusively breast feeding Narrative: Aquacel dressing removed and replaced last evening after it became saturated while showering Date Patient Seen: 07/04/21 Time Patient Seen: 12:45 Exam Vital Signs (past 8 hours): Oxygen Delivery Method Room Air Const General: cooperative, comfortable and well developed Orientation: alert and oriented x3 HENMT Head: normal to inspection Ears: hearing grossly normal bilaterally Face and sinus: face symmetric Eyes General: appearance normal, both eyes and all related structures Conjunctivae: conjunctivae normal Sclera: sclerae normal EOM: EOM intact bilaterally Neck Neck: normal visual inspection Resp Effort & Inspection: normal respiratory effort and able to speak in complete sentences Auscultation: clear to auscultation bilaterally Cardio Rate: regular rate Rhythm: regular rhythm Heart Sounds: S1 normal, S2 normal and no murmurs GI Inspection: normal to inspection and incision (Dressing clean and dry) Palpation: soft and no hepatosplenomegaly Skin General: no rashes or lesions noted Extrem General: no calf tenderness and No edema Psych Appearance: grossly normal Mental Status: mental status grossly normal Speech and Movement: speech and movement normal Mood: congruent mood Affect: normal affect Attitude: cooperative Thought Process: normal Thought Content: normal Judgment: judgment good Objective Labs Result Diagrams: 07/04/21 07:39 Labs: Laboratory Results - last 24 hr 07/04/21 07:39 Hgb 10.9 L Hct 32.1 L Assessment & Plan Plan day: 1 plan OB: routine care Comments: Anticipate D/C in the AM. Time Spent With Patient Time: Total time spent is greater than 50% in coordination of care (as documented) at patient's floor/unit and/or counseling patient: Time with patient: less than 15 minutes
[2021-07-05] MEDS: IBUPROFEN 600 MG TABLET PO ×2 (03:21→08:57)
[2021-07-05] MEDS: ACETAMINOPHEN 325 MG TABLET 650 MG PO ×2 (03:21→08:57)
[2021-07-05 07:50] VITALS: BP 120/82; PULSE 78; RESP 17; TEMP 36.8
[2021-07-05] MEDS: DOCUSATE 100 MG CAPSULE 200 MG PO (08:56)
[2021-07-05 08:57] VITALS: TEMP 36.8
--- NOTE | 2021-07-05 10:01 | P.DS_ITS ---
Discharge Providers Provider Date of admission: 07/02/21 16:58 Discharge Date: 07/05/21 Primary care physician: Emeka Pacheco DO Consults: 07/02/21 19:18 Consult to Anesthesiology Urgent Comment: Consulting Provider: Maximilian Lopez Reason for consultation: Placement of JOHN in labor Has provider been notified: No 07/03/21 17:49 Consult to Coordinator Of Placement Routine Comment: Discharge provider: Marii Lynch MD Summary Hospital Course Date Patient Seen: 07/05/21 Time Patient Seen: 10:01 Diagnoses: 39 week gestation with failed induction due to intolerance of labor Hospital Course: Patient was admitted for Cytotec followed by Pitocin induction. After spontaneous rupture membranes the fetus was found to be malpositioned and was having severe variable so decision was made to proceed with section. Patient is tolerating regular diet, urinating, ambulatory, and has had bowel movements. Peripartum Data Delivery Method: Emergency Section Laceration Description: None Procedures: Cytotec followed by Pitocin induction with primary low-transverse section. complications: none 1: Gender: Female Disposition of : home Discharge Diagnosis (1) Status post primary low transverse section: Status: Acute Status at Discharge Cognitive/behavioral status at discharge: oriented Functional status at discharge: independent ambulation Overall status at discharge: patient is progressing back to baseline Time Spent with Patient Time attestation: Total time spent providing and/or coordinating discharge services: Time spent: Less than 30 minutes Objective Labs Result Diagrams: 07/04/21 07:39 Exam Vital Signs (past 8 hours): - blood pressure 120/82, pulse 78, temperature 98.2? 07/05/21 08:57 Temperature 98.2 F Oxygen Delivery Method Room Air Narrative Exam Narrative: Patient's abdomen is soft, nontender. Uterus is firm, at U, nontender. Dressing is clean, dry, intact. Extremities without edema and nontender. Patient is O positive, rubella immune, received Tdap in the 3rd trimester Discharge Plan Discharge Plan Patient Disposition: Home Discharge orders & Medications Prescriptions: New ibuprofen 600 mg Tablet 600 mg PO Q6H PRN (Reason: Fever/Mild Pain (1-3)) Qty: 30 0RF Continued omeprazole magnesium [Prilosec OTC] 20 mg tablet,delayed release (DR/EC) 20 mg PO BID Qty: 60 6RF prenat.vits,aston,sna-elmd-trefi Tablet 1 tab PO DAILY 0RF metoclopramide HCl [Reglan] 10 mg tablet 10 mg PO Q6H PRN (Reason: nausea and vomiting) Qty: 60 3RF Follow up/Referrals: Emeka Pacheco DO [Primary Care Provider] - Maximilian Lopez MD [Physician] - 1 Week (Incision check in one week. Pt will call for appointment time.) Diet/Activity/Treatments Diet: Regular Activity: nothing in vagina or lifting over 20 lb for 6 weeks Skin/Wound/Dressing Care Report to your healthcare provider any signs of infection, such as:: chills, fever, increased pain and unusual redness Dressing: Leave dressing on until 1 week postop appointment Visit Report/Discharge Packet Stand Alone Forms: Discharge: Care Discharge Data Primary Care Provider: Emeka Pacheco
--- NOTE | 2021-08-05 13:50 | P.MR.ANES_ITS ---
Operative Date/Time/Diagnoses Date of procedure: 07/03/21 Time of procedure: 14:13 Pre-op diagnosis: requiring urgent Post-op diagnosis: other (successful delivery) Note This is a replacement Anesthesia Record note to semiconductor processing technician for a paper anesthetic record. This note was authored on 08/05/21 at request of Medical Records department. The date of original procedure was 2021. Patient Shiloh Guerra was taken into the OR for an urgent at 14:13 on 07/03/2021. The patient was graded as a healthy patient requiring urgent surgical intervention, ASA 1E. The anesthetic technique used for c-sec was re gional/lumbar spinal anesthesia without sedation. Spinal was performed in sitting position. Sterile technique was used (betadine skin prep, sterile gloves and equipment), skin wheal anesthesia was 1% lidocaine, lumbar interspace was accessed using a 25 ga Bertha needle, CSF return was noted, patient received a standard spinal dose, 1.6mL of hyperbaric bupivacaine 0.75%. The patient also received a dose of 200mcg of duramorph via this lumbar spinal injection for control of post operative pain. During the spinal procedure and , ASA monitoring was used including NIBP, pulse oximetry, and EKG. Operative positioning was supine with left uterine displacement. Patient was conscious and alert throughout operation and remained unsedated prior to umbilical clamping. I do not have exact records of specific vitals at this time, however ephedrine and/or phenylephrine MAY have been used to maintain normotensive blood pressure (see [facility] record for medications that may have been used). At least 20 units of oxytocin were given via IV drip once placenta was delivered to achieve uterine tone and aid in hemostasis. Please confirm with [facility] record regarding possible administration of Zofran, ketoralac, or post-delivery IV sedatives like fentanyl or midazolam. Total fluid volume can be estimated using nursing IV fluid flow charting and is estimated to be between 1-3 liters of LR. Blood loss and urine output can be found in surgeons post-op note. Patient was transferred to PACU nursing care, marking the end of this anesthetic record at 15:32 on 07/03/2021.
== END 2021-07-05 12:30 | disposition home or self-care (01) | DRG 788 ==
PROVIDERS: Admitting Provider Obstetrics & Gynecology; PCP Family Medicine; Referring Provider Obstetrics & Gynecology; Visit Provider Obstetrics & Gynecology
PROC: 10D00Z1 Extraction of Products of Conception, Low, Open Approach (ICD-10-PCS; CPT 59514; principal; 2021-07-03 14:15)
DX: O69.0XX0 Labor and delivery complicated by prolapse of cord, not applicable or unspecified (principal); Z3A.39 39 weeks gestation of pregnancy; Z37.0 Single live birth; O76 Abnormality in fetal heart rate and rhythm complicating labor and delivery; O64.8XX0 Obstructed labor due to other malposition and malpresentation, not applicable or unspecified; O61.0 Failed medical induction of labor; O99.824 Streptococcus B carrier state complicating childbirth; Z20.822 Contact with and (suspected) exposure to COVID-19
CPT/HCPCS: 36415; 59050; 59200; 59510; 59514; 76815; 85014; 85018; 85025; 86850; 86900; 86901; 87635; C9803; G0379; J0690; J1885; J2274; J2540; J2590

== ENCOUNTER 2022-03-11 13:53 | Emergency (ER) | payer OTHER, SELFPAY ==
[2022-03-11 14:17] VITALS: PULSE 82; RESP 20; TEMP 37.5; O2SAT 100
--- NOTE | 2022-03-11 15:03 | ED.URI ---
HPI - URI/Sore Throat <Jessika Salguero, [facility] - Last Filed: 03/11/22 17:53> General Chief Complaint: Upper Respiratory Symptoms Stated Complaint: Ill, Bleeding from tonsils Time Seen by Provider: 03/11/22 14:29 Source: patient Mode of arrival: Ambulatory History of Present Illness HPI Narrative: This is a 21-year-old female presents to the emergency department with a sore throat she states it has been sore for the last 4 days, she states that her daughter has RSV and she has had a fever, endorses cervical adenopathy, states that she had a pus filled lesion on her tonsils, states it had blood in it but ruptured this morning. She said she thought it was a tonsillar stone so they tried to extracted and it was not. She denies any dysuria, urinary frequency but reports that she feels nauseated. She started vomiting during my exam and history and has a mild fever of 100.2 currently. She has mild tachycardia, states that she took ibuprofen and Tylenol this morning and it has not helped. She denies any difficulty swallowing, talking, she has normal phonation without muffled voice. Denies chills, denies wheezing or shortness of breath. Related Data Home Medications Medication Instructions Recorded Confirmed prenat.vits,aston,sri-jczx-cyxdo 1 tab PO DAILY 12/03/20 08/28/21 Previous Rx's Medication Instructions Recorded omeprazole magnesium 20 mg 20 mg PO BID #60 tabs 05/27/21 tablet,delayed release (Prilosec OTC) metoclopramide HCl 10 mg tablet 10 mg PO Q6H PRN nausea and 06/04/21 (Reglan) vomiting #60 tabs ibuprofen 600 mg tablet 600 mg PO Q6H PRN Fever/Mild Pain 07/05/21 (1-3) #30 tabs nystatin-triamcinolone 100,000 1 applic topical TID [place] 07/10/21 unit/g-0.1 % topical cream dermatitis #60 grams amoxicillin 875 mg-potassium 1 tab PO BID 10 days #20 tabs 03/11/22 clavulanate 125 mg tablet benzocaine 15 mg-menthol 2.6 mg 1 cory mucous membrane Q2-4H PRN 03/11/22 lozenges (Cepacol Sore Throat throat pain #16 ea (benzocaine-menthol)) prednisone 20 mg tablet 40 mg PO DAILY 3 days #6 tabs 03/11/22 Allergies Allergy/AdvReac Type Severity Reaction Status Date / Time No Known Drug Allergies Allergy Verified 08/28/21 11:00 Review of Systems <LORY Moore - Last Filed: 03/11/22 17:53> Review of Systems Narrative: Review of systems is negative for acute abnormalities unless otherwise noted in HPI Patient History <LORY Moore - Last Filed: 03/11/22 17:53> Medical History Acne Anorexia Anxiety Bulimia (~05/2019) Finger fracture GBS (group B Streptococcus carrier), +RV culture, currently History of being hospitalized Joint pain (~05/2019) SAB (spontaneous ) (~12/2019) Torn meniscus (~08/2019) Surgical History [place] teeth extracted (~10/2016) Family History Father Hyperthyroidism History of prediabetes Altered cardiac tissue perfusion Mother BRCA gene positive Benign tumor of breast Heavy smoker Depression Anxiety Grandfather History of heart artery stent Rheumatoid arthritis Grandmother Cancer Breast cancer BRCA gene positive Hypertension Grandfather Diabetes mellitus Grandmother Rheumatoid arthritis Benign tumor of breast Twins, both liveborn Brother Aspergers' syndrome Epilepsy Family/Other Altered cardiac tissue perfusion Joint pain Family/Other Twins, both liveborn Social History marital status: household members: spouse and other lives independently: Yes pets and animals: Yes (X 1 dog; X 1 cat (aware) and a Bird and a Bunny ) education level: college occupational status: employed current occupational exposures/hazards: Yes 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 General: cooperative, comfortable, in no acute distress, well groomed HEENT: symmetrical facial expressions, moist mucous membranes, posterior pharynx with bilateral tonsillar adenopathy with exudate, anterior cervical lymphadenopathy, uvula is midline, posterior pharynx with erythema, normal phonation, without muffled voice Cardiovascular: regular rate and rhythm, no peripheral edema, warm extremities Neuro: normal speech and cognition, A&O x3, ambulatory, clear speech Psych: mental status is grossly normal, congruent mood, normal affect, pleasant and cooperative Initial Vital Signs Initial Vital Signs: Vital Signs Temperature 99.5 F 03/11/22 14:17 Pulse Rate 82 03/11/22 14:17 Respiratory Rate 20 03/11/22 14:17 Pulse Oximetry 100 03/11/22 14:17 Oxygen Delivery Method 03/11/22 14:17 <Nany Pathak DO - Last Filed: 03/12/22 08:25> Initial Vital Signs Initial Vital Signs: Vital Signs Temperature 99.5 F 03/11/22 14:17 Pulse Rate 82 03/11/22 14:17 Respiratory Rate 20 03/11/22 14:17 Pulse Oximetry 100 03/11/22 14:17 Oxygen Delivery Method 03/11/22 14:17 Course <LORY Moore - Last Filed: 03/11/22 17:53> Course Course Narrative: [facility] CLIA ID [id number] [address] [place] [address] RUN DATE: 03/11/22 Specimen Inquiry PAGE 1 RUN TIME: 1526 Name: Shiloh Sneed Age/Sex: 20/F Attend Dr: Maximilian Lopez MD Unit#: [id number] : 2000Location: LAB Re06/11/21 Disch: Status: REG CLI SPEC #: [id number] IRENE: 06/11/21 STATUS: COMP REQ : [id number] RECD: 06/11/21-[address]: Maximilian Lopez MD FINAL: 06/12/21-1039 ENTERED: 06/11/21-[address]: Emeka Pacheco D.O. FAX TO: ORDERED: GRP B STREP PCR Test Result Flag Reference Site Group B Strep PCR POS for Grp B Strep H Orders Ordered: Discontinued Medications Dexamethasone (Dexamethasone 10 Mg/Ml Vial) 10 mg PO NOW ONE Stop: 03/11/22 15:02 Last Admin: 03/11/22 15:24 Dose: 10 mg Documented By: RB Ketorolac Tromethamine (Ketorolac 30 Mg/Ml Vial) 15 mg IM NOW ONE Stop: 03/11/22 15:02 Last Admin: 03/11/22 15:25 Dose: 15 mg Documented By: RB Ondansetron HCl (Ondansetron 4 Mg Odt) 4 mg SL NOW ONE Stop: 03/11/22 15:02 Last Admin: 03/11/22 15:26 Dose: 4 mg Documented By: RB Penicillin G Benzathine (Penicillin G Benzathine 1,200,000 Unit/2 Ml Syringe) 1,200,000 unit IM NOW ONE Stop: 03/11/22 15:02 Last Admin: 03/11/22 15:25 Dose: 1,200,000 unit Documented By: RB Vital Signs Vital signs: Vital Signs - 8 hr 03/11/22 14:17 03/11/22 15:25 Temperature 99.5 F 100.2 F H Pulse Rate 82 Respiratory Rate 20 Pulse Oximetry 100 Oxygen Delivery Method Room Air <Nany Pathak DO - Last Filed: 03/12/22 08:25> Orders Ordered: Discontinued Medications Dexamethasone (Dexamethasone 10 Mg/Ml Vial) 10 mg PO NOW ONE Stop: 03/11/22 15:02 Last Admin: 03/11/22 15:24 Dose: 10 mg Documented By: RB Ketorolac Tromethamine (Ketorolac 30 Mg/Ml Vial) 15 mg IM NOW ONE Stop: 03/11/22 15:02 Last Admin: 03/11/22 15:25 Dose: 15 mg Documented By: RB Ondansetron HCl (Ondansetron 4 Mg Odt) 4 mg SL NOW ONE Stop: 03/11/22 15:02 Last Admin: 03/11/22 15:26 Dose: 4 mg Documented By: RB Penicillin G Benzathine (Penicillin G Benzathine 1,200,000 Unit/2 Ml Syringe) 1,200,000 unit IM NOW ONE Stop: 03/11/22 15:02 Last Admin: 03/11/22 15:25 Dose: 1,200,000 unit Documented By: PRABHAKAR Vital Signs Vital signs: Vital Signs - 8 hr 03/11/22 14:17 03/11/22 15:25 Temperature 99.5 F 100.2 F H Pulse Rate 82 Respiratory Rate 20 Pulse Oximetry 100 Oxygen Delivery Method Room Air MDM - URI/Sore Throat <Jessika Salguero [facility] - Last Filed: 03/11/22 17:53> Lab Data Labs: Lab Results 03/11/22 03/11/22 Range/Units 14:52 15:10 Urine RBC None seen (0-5/HPF) Urine WBC 0-1/hpf (0-5/HPF) Ur Squamous Epith Cells 5-10 /hpf H (0-5/HPF) Amorphous Sediment 2+ Urine Bacteria Occasional (0-1) (None) SARS-CoV-2 (PCR) Negative (Negative) Influenza A (RT-PCR) Flu a negative (NEGATIVE) Influenza B (RT-PCR) Flu b negative (NEGATIVE) RSV (PCR) Negative (Negative) Point of Care Testing Test Results Negative Rapid Strep A Negative Urine Dip Bedside Urine Glucose Negative Bedside Urine Bilirubin - Negative Bedside Urine Ketone - Negative Urine Specific [place] 1.010 Bedside Urine Occult Blood - Negative Bedside Urine pH 8.5 Bedside Urine Protein + 30 Bedside Urine Urobilinogen 0.2 Bedside Urine Nitrite - Negative Bedside Urine Leukocytes - Negative Esterase [facility] [place] Narrative Medical decision making narrative: This is a 21-year-old female who presents to the emergency department with 4 days of a sore throat, states that she is taking care of her daughter with RSV. She has tonsillar adenopathy with anterior cervical lymphadenopathy, tonsillar exudate, nausea and vomiting. Her rapid strep was negative, throat culture obtained and is pending, patient has a history of group B strep during which was in May of this year. I presume this is most likely recurrence of group B strep, she was given penicillin G 1.2 million units IM in the emergency department, she is given Toradol and 10 mg of dexamethasone for tonsillar adenopathy and pharyngitis. I encouraged her to return to the emergency department if she has any worsening of her symptoms, if she has difficulty swallowing, fever chills and is not improving after the antibiotics. I gave her a prescription of Augmentin to start if after 3 days she has worsening of her symptoms. At this point her throat culture should be back. Encouraged her to follow-up with her primary care provider as needed, she was given throat lozenges and prednisone to take for 3 days as needed for pharyngitis and tonsillar adenopathy. #66: Appropriate Testing for Patients with Pharyngitis [x The patient has acute pharyngitis/tonsillitis. The patient was prescribed antibiotics today and a strep test or culture was performed. [[employer]] <Nany Lawson, DO - Last Filed: 03/12/22 08:25> Lab Data Labs: Lab Results 03/11/22 03/11/22 Range/Units 14:52 15:10 Urine RBC None seen (0-5/HPF) Urine WBC 0-1/hpf (0-5/HPF) Ur Squamous Epith Cells 5-10 /hpf H (0-5/HPF) Amorphous Sediment 2+ Urine Bacteria Occasional (0-1) (None) SARS-CoV-2 (PCR) Negative (Negative) Influenza A (RT-PCR) Flu a negative (NEGATIVE) Influenza B (RT-PCR) Flu b negative (NEGATIVE) RSV (PCR) Negative (Negative) Point of Care Testing Test Results Negative Rapid Strep A Negative Urine Dip Bedside Urine Glucose Negative Bedside Urine Bilirubin - Negative Bedside Urine Ketone - Negative Urine Specific [place] 1.010 Bedside Urine Occult Blood - Negative Bedside Urine pH 8.5 Bedside Urine Protein + 30 Bedside Urine Urobilinogen 0.2 Bedside Urine Nitrite - Negative Bedside Urine Leukocytes - Negative Esterase Discharge Plan Departure Patient Disposition: Home Clinical Impression: Dysuria Pharyngitis Qualifiers: Pharyngitis/tonsillitis etiology: unspecified etiology Qualified Code(s): J02.9 - Acute pharyngitis, unspecified Instructions: Strep Throat, Group B Streptococcal Infection, Throat Culture Activity Restrictions/Additional Instructions: *You have been diagnosed with pharyngitis, this is likely group B strep throat. Please use ibuprofen 600 mg every 6 hours for your pain with some food and water to coat her stomach. Stay hydrated as a priority, you should start feeling better soon and start taking the antibiotics if you have worsening of your symptoms after 3 days or if you develop a fever again. Please make sure you are treating her fever with Tylenol and ibuprofen, we will call you in 2 days if your throat culture grows bacteria that is not covered with penicillin. It is possible that there will be resident bacteria to disrupt that sample and not get a good report but if you do not feel better, please come back in for evaluation or start the antibiotic and see if you do. If you have significant swelling of her throat, please use the prednisone 40 mg for 3 days to help with this. Drink plenty of clear fluids, return for any worsening, and follow-up with your primary doctor as needed. *What to do: *Please continue to take your regular medications as directed. [x ] New medication prescriptions sent to your pharmacy: [[facility] ] [ ] New medication written as a paper prescription [ ] No new medications given *Please follow up with your primary care provider in 2-3 days, call for an appointment. Let them know you were seen in the Emergency Department and that we asked that you be seen for follow-up. We will electronically transmit a record of today's note if your PCP is in our system *If you do not have a primary care provider please contact [phone] to establish care with one of the [facility] primary care providers. *Return to Emergency Department if you should have any new, worsening, or concerning symptoms, such as [fever greater than 101F, chills, worsening pain, persistent vomiting or other bothersome symptoms]. Prescriptions: New amoxicillin-pot clavulanate 875-125 mg tablet 1 tab PO BID 10 Days Qty: 20 0RF prednisone 20 mg tablet 40 mg PO DAILY 3 Days Qty: 6 0RF Cepacol Sore Throat (antonio-men) 15-2.6 mg lozenge 1 cory mucous membrane Q2-4H PRN (Reason: throat pain) Qty: 16 0RF No Action omeprazole magnesium [Prilosec OTC] 20 mg tablet,delayed release (DR/EC) 20 mg PO BID Qty: 60 6RF prenat.vits,aston,gej-nxni-njiyo Tablet 1 tab PO DAILY metoclopramide HCl [Reglan] 10 mg tablet 10 mg PO Q6H PRN (Reason: nausea and vomiting) Qty: 60 3RF nystatin-triamcinolone 100,000-0.1 unit/g-% cream 1 applic topical TID Qty: 60 1RF Rx Instructions: May cover with saran wrap for 30-60 minutes following each application TID until redness resolves. ibuprofen 600 mg Tablet 600 mg PO Q6H PRN (Reason: Fever/Mild Pain (1-3)) Qty: 30 0RF Referrals: Emeka Pacheco DO [Primary Care Provider] - Stand Alone Forms: Work Release Note Visit Report Forms: Patient Portal/API <Nany Pathak DO - Last Filed: 03/12/22 08:25> Cosign ED Attending Cosjoneature Attestation: I was immediately available in the department for consultation. Documentation has been reviewed. I agree with assessment and plan.
[2022-03-11] MEDS: DEXAMETHASONE 10 MG/ML VIAL PO (15:24)
[2022-03-11 15:25] VITALS: TEMP 37.9
[2022-03-11] MEDS: PENICILLIN G BENZATHINE 1,200,000 UNIT/2 ML SYRINGE 1200000 UNIT IM (15:25)
[2022-03-11] MEDS: KETOROLAC 30 MG/ML VIAL 15 MG IM (15:25)
[2022-03-11] MEDS: ONDANSETRON 4 MG ODT SL (15:26)
[2022-03-11 15:29] LABS: Amorphous Sediment Urine 2+; Bacteria Urine Occasional (0-1); RBC Urine None Seen (0-5/HPF); Squamous Epithelial Cell Urine 5-10 /HPF (0-5/HPF); WBC Urine 0-1/HPF (0-5/HPF)
[2022-03-11 16:04] LABS: Influenza A - CEPHEID Flu A NEGATIVE (NEGATIVE); Influenza B - CEPHEID Flu B NEGATIVE (NEGATIVE); Respiratory Syncytial Virus Negative (Negative)
[2022-03-11 16:09] LABS: COVID-19 CEPHEID PCR (VTM/NP) Negative (Negative)
[2022-03-11 19:16] VITALS: BP 124/69; PULSE 83; RESP 20; TEMP 37.7; O2SAT 99
== END 2022-03-11 15:35 | disposition home or self-care (01) ==
PROVIDERS: Emergency Provider Nurse Practitioner Critical Care Medicine; PCP Family Medicine
DX: J02.9 Acute pharyngitis, unspecified (principal); R30.0 Dysuria; Z20.822 Contact with and (suspected) exposure to COVID-19
CPT/HCPCS: 0241U; 81003; 81015; 81025; 87070; 87086; 87880; 96372; 99283; 99284; J0561; J1100; J1885